=== PATIENT | male | born 1950 | race Caucasian/White ===

== ENCOUNTER 2020-05-06 06:27 | Observation (INO) ==
--- NOTE | 2020-04-21 08:28 | ANES ---
Anesthesia Pre Procedure Eval HOME MEDICATIONS aspirin 81 mg tablet,delayed release 81 mg PO .COMPLEX 03/24/20 [Last Taken Unknown] cetirizine 10 mg tablet 10 mg PO DAILY PRN tab 03/24/20 [Last Taken Unknown] cholecalciferol (vitamin D3) 50 mcg (2,000 unit) capsule 50 mcg PO DAILY 03/24/20 [Last Taken Unknown] ibuprofen 200 mg tablet 800 mg PO HS tab 03/24/20 [Last Taken Unknown] Allergies/Adverse Reactions: Allergies Allergy/AdvReac Type Severity Reaction Status Date / Time No Known Allergies Allergy Verified 04/15/20 09:13 - Planned Procedure Planned Procedure: Left Arthroplasty Total Knee Medication List Reviewed:: Yes Allergies Verified: Yes Medical History (Last Reviewed 04/21/20 @ 08:25 by Edwin Hernandez CRNA) Primary osteoarthritis of left knee (Chronic) Seasonal allergies Surgical History (Last Reviewed 04/21/20 @ 08:25 by Edwin Hernandez CRNA) H/O colonoscopy Onset Date: ~2018 [facility] H/O discectomy Onset Date: ~12/2018 L3-4: [facility] H/O hernia repair Onset Date: Unknown Family History (Last Reviewed 04/21/20 @ 08:25 by Edwin Hernandez CRNA) Father Hypertension TIA (transient ischemic attack) Leukemia Mother Lupus Lymphoma Rheumatoid arthritis - Family Anesthesia History Family History:: no untoward family reactions to anesthesia, no familial bleeding tendencies, no family history of clotting disorders, no family history of premature - Airway/Neck/Teeth Within Normal Limits:: Yes Teeth Condition: intact Neck Exam: full range of motion Mallampatti Score: 1 Thyromental (T-M) distance: > 6 cm Mandibulo Hyoid distance: > 3 cm - Respiratory Respiratory Physical: lungs clear Smoking Status: Never smoker Sleep Apnea currently treated: No Sleep Apnea by current assessment: No - Cardiovascular Tolerate Activity: Fair Heart Sounds: S1 & S2, Regular - Gastrointestinal NPO since: 2400 - Anesthesia Assessment and Plan ASA Class: PS, II Anesthesia Type Plan: Block - Adductor canal block for post op pain relief, Spinal
[~2020-05-06 06:27] MED LIST: BUPIVACAINE HCL/EPINEPHRINE 50 ML VIAL IJ ONE; MIDAZOLAM HCL/PF 5 MG/ML VIAL ONE; MORPHINE SULFATE 15 MG TABLET.SA PO PRN; ONDANSETRON HCL/PF 2 MG/ML VIAL ONE; PROPOFOL VIAL IV ONE; ROPIVACAINE/CLONIDIN/KETOROLAC 50 ML SYRINGE IJ PRN; TRANEXAMIC ACID 1,000 MG in NORMAL SALINE 100 ML IV PRN; ceFAZolin SODIUM 1 GM VIAL IV PRN
[2020-05-06] MEDS ORDERED: ceFAZolin SODIUM 1 GM VIAL ONE (06:38)
[2020-05-06] MEDS ORDERED: ISOPROPYL ALCOHOL 480 APPL BTL MC ONE (06:38)
[2020-05-06] MEDS: RINGER'S SOLUTION,LACTATED 1,000 ML IV PRN ×3 (07:00→10:03)
[2020-05-06] MEDS ORDERED: diphenhydrAMINE HCL 50 MG/ML VIAL IV PRN ×2 (07:15→09:59)
[2020-05-06] MEDS ORDERED: ONDANSETRON HCL/PF 2 MG/ML VIAL IV PRN ×2 (07:15→09:59)
[2020-05-06] MEDS ORDERED: NALOXONE HCL 0.4 MG/ML VIAL IV PRN (07:15)
[2020-05-06] MEDS ORDERED: PROCHLORPERAZINE EDISYLATE 5 MG/ML VIAL IV PRN (07:15)
[2020-05-06] MEDS ORDERED: HYDROmorphone HCL 2 MG/ML VIAL IV PRN (07:15)
[2020-05-06] MEDS ORDERED: LIDOCAINE HCL 20 ML VIAL ONE (07:25)
[2020-05-06] MEDS ORDERED: fentaNYL CITRATE/PF 50 MCG/ML AMPUL ONE (07:26)
[2020-05-06] MEDS ORDERED: ONDANSETRON HCL/PF 2 MG/ML VIAL ONE (07:26)
[2020-05-06] MEDS ORDERED: PHENYLEPHRINE HCL 10 MG/ML AMPUL ONE (07:26)
[2020-05-06] MEDS ORDERED: PROPOFOL VIAL IV ONE (07:26)
[2020-05-06] MEDS ORDERED: BUPIVACAINE HCL 50 ML VIAL IJ ONE (07:27)
[2020-05-06] MEDS ORDERED: ZOLPIDEM TARTRATE 5 MG TABLET PO PRN (09:59)
[2020-05-06] MEDS ORDERED: ACETAMINOPHEN 500 MG TABLET PO PRN (09:59)
[2020-05-06] MEDS ORDERED: MAGNESIUM HYDROXIDE 30 ML UDC PO PRN (09:59)
[2020-05-06] MEDS ORDERED: DEXTROSE 5%-LACTATED RINGERS 1,000 ML IV PRN (09:59)
[2020-05-06] MEDS ORDERED: MAG HYDROX/ALUMINUM HYD/SIMETH 30 ML UDC PO PRN (09:59)
--- NOTE | 2020-05-06 09:59 | OR ---
Operative Report - Dictated Report Narrative: Date: 05/06/2020 Preoperative diagnosis: Left knee degenerative joint disease. Postoperative diagnosis: Left knee degenerative joint disease. Procedure: Left total knee arthroplasty. Surgeon: Wally Coleman M.D. Geriatrics Physician: Edgard Arndt PA-C (provided and essential set of skilled, educated hands that assisted with transfer, positioning, prepping, draping, manipulation, retraction, placement of jigs, injection, insertion of implants, irrigation, closure wounds, and dressings all of which could not be performed by the available surgical crew) Anesthesia: Spinal with regional block and local periarticular joint injection. Complications: None Specimens: Bone. Estimated blood loss: Minimal. Tourniquet time: 90 Minutes at 300 millimeters of mercury. Retained implants: Depuy Attune size 7 left lugged cemented posterior stabilized femoral component. Size 7 fixed-bearing cemented tibial platform. 7 by 6 millimeter posterior stabilized cross-linked tibial insert. 41 millimeter medialized patella button. Indications: Mr. Noyola is a 69-year-old gentleman who has had longstanding right left knee pain and arthrosis. This patient was followed in my clinic for period of time with significant complaints of left knee pain consistent with arthritic changes. He had failed conservative measures including, but not limited to, activity modification, passage of time, medications, and other conservative measures. Patient wished to proceed with surgical treatment. The risks, benefits, and alternatives were discussed in clinic. The risks of , blood clots, bleeding, infection, nerve/tendon blood vessel/ injury, malposition of components, intraoperative fracture, postoperative limited range of motion, persistent pain, failure of components, and need for additional procedures. Patient wished to proceed consent was obtained after answering all questions. Procedure: After marking the correct extremity on the floor, the patient was taken to the operating room. A timeout was performed. IV antibiotics consisting of Ancef were administered prior to the procedure. A regional followed by spinal anesthetic was induced by anesthesia, per my request, on the operative table with all bony prominences well-padded. Fleming catheter was placed, and a bump was placed under the operative side buttock. SCDs and MARIA A hose were utilized on the nonoperative leg. A well-padded tourniquet was applied to the operative thigh. The operative leg was then pre-scrubbed with alcohol, prepped, and draped in a standard sterile fashion. After exsanguinating the extremity with an Esmarch bandage, the tourniquet was inflated. After marking out the anterior knee for standard incision centered over the patella, the skin was incised and dissected down to the joint retinaculum. The joint retinaculum was marked out as well as the horizontal axis of the patella, and a standard medial parapatellar arthrotomy was then made. The most proximal aspect of the quadriceps tendon and the patella tendon insertion were protected from release. A partial synovectomy was performed as well as a resection of the infrapatellar fat pad. The distal femoral fat pad proximal to the trochlea was also resected using cautery. The soft tissues were elevated off the medial a spect of the proximal tibia using a Herbert elevator ensuring that we did not transect the medial collateral ligament. Upon initial evaluation range of motion was approximately 0 degrees to 130 degrees of flexion. There were signs of advanced arthrosis in the medial and patellofemoral greater than lateral joint spaces. There were large marginal osteophytes which were removed with a rongeur. The knee was hyperflexed and the patella was tucked laterally. Protecting the surrounding soft tissues with Homans, an entry drill was placed down the femoral canal using Whitesides line for guidance into the entry point. The intramedullary femoral alignment elena was utilized in order to cut the distal femur in 5 degrees of valgus resecting 10 millimeters of bone. Next the distal femur was sized to a size 7. A posterior referencing guide was utilized to place the distal femoral cutting block in 3 degrees of external rotation. This was pinned into place. The rotation was confirmed both visually and based on anatomic landmarks. The 4 in 1 cutting jig of the appropriate size was utilized in order to make all bony cuts. The todd wing was used to ensure no notching. Retractors were utilized in order to protect surrounding soft tissues. This cut did not result in any excessive notching. We then cut the box centered over the distal femur. This allowed for resection of the anterior and posterior cruciate ligaments. I then turned my attention to the preparation of the tibia. Using an extra medullary tibial alignment elena, 5 millimeters of bone was resected off the medial articular surface. This was made perpendicular to the mechanical axis of the joint with the alignment elena centered over the ankle mortise. The alignment elena was checked and was noted to be parallel to the me chanical axis, centered over the medial one third of the tibial tubercle, paralleling the anterior surface of the tibia. We then turned our attention to the remaining meniscus and soft tissues. These were removed while protecting the surrounding ligaments and soft tissues. The marginal osteophytes off the anterior, posterior, medial, lateral aspects of the femur and tibia were removed. The tibia was sized out to a size 7. Next the tibia was drilled and punched in an externally rotated position. Next the trial femur and a series of tibial inserts were utilized in order to allow for full extension and maximal flexion. It was found that a 6 millimeter insert gave the best range of motion and stability at multiple flexion points as well as at full extension there was less than 2 mm of gapping both medially and laterally. There is minimal anterior translation with the knee at 90 degrees of flexion and no signs of being able to dislocate the knee. The patella was then prepared. The initial thickness was 25 millimeters. This was reamed down to 15 millimeters parallel to the anterior surface of the patella. It was sized out to a size 41 medialized patella button. This was then drilled and trialed. Without any medial restraint the patella tracked appropriately and did not sublux or dislocate. At this point, it was felt these were the appropriate sized implants, and all tr ials were removed. The standard periarticular joint injection consisting of ropivacaine, Toradol, and epinephrine were injected into the periarticular joint tissues. The bony surfaces were thoroughly irrigated with a pulsatile-suction saline irrigation device. A bone plug from the prior resected anterior chamfer cut was placed into the drill hole at the distal femur. The bony surfaces were then dried in preparation for placement of the implants. The cement was vacuum mixed per the player services representative's instructions. The cement was placed on the dry bony surfaces and posterior aspect of the implants. The implants were impacted into place, removing all extruded cement. At this point anesthesia administered tranexamic acid per protocol intravenously. The knee was placed in extension with axial loading with the trial insert while the cement cured. Once the cement cured, all remaining extruded cement was removed. The knee was placed through a range of motion with the trial insert to ensure appropriate range of motion and stability. Final range of motion was approximately 0 to 130 degrees. The knee was again thoroughly irrigated with pulsatile saline lavage. The final polyethylene insert was then impacted into place ensuring no retained soft tissues. The remaining periarticular joint injection was injected. A medium Hemovac drain was placed exiting superior laterally. The knee was then placed over a triangle and the arthrotomy was closed with interrupted #1 Vicryl after thoroughly irrigating the joint. The deep and subcutaneous tissues were closed with interrupted 0 and 3-0 Vicryl respectively. Skin was closed with a running subcutaneous 3-0 Monocryl and Prineo Dermabond dressing. 4 x 4's, Sof-Rol, and a full leg Conner wrap were applied. All sponge, needle, blade, and instrument counts were correct prior to closing the wounds. Postoperative condition: The patient was awoken and transferred to the postanesthesia care unit in stable condition. Plan is to be admitted to the inpatient medical/surgical floor postoperatively for 24 hours of IV antibiotics, physical therapy, occupational therapy, and medical comanagement. Patient will be weightbearing as tolerated with range of motion as tolerated. DVT prophylaxis will be with SCDs, MARIA A hose, and pharmacological anticoagulation. Anticipated hospital stay is approximately 1-3 days.
[2020-05-06] MEDS ORDERED: LORATADINE 10 MG TABLET PO PRN (10:01)
--- NOTE | 2020-05-06 10:34 | ANES ---
Post Anesthesia Discharge - Transfer of Care Transfer of Care handoff given to nurse: Yes - Discharge from PACU Discharge from PACU when meets criteria: Yes - Discharge to ASU Discharge to ASU-no complications/pt stable: Yes
--- NOTE | 2020-05-06 10:37 | ANES ---
Post Anesthesia Assessment - Vital Signs Vitals: Last Vital Signs Temp 36.3 C 05/06/20 10:15 Pulse 71 05/06/20 10:35 Resp 20 05/06/20 10:35 BP 149/76 05/06/20 10:35 Pulse Ox 99 05/06/20 10:35 Airway Patency: Normal - Mental Status Level Of Consciousness: Awake - Pain Level Pain Score: 0 - N/V Assessment Nausea/Vomiting Presence: None Dehydration:: No
--- NOTE | 2020-05-06 10:37 | ANES ---
Anesthesia Procedure Note Procedure Note: ANESTHESIA PROCEDURE NOTE Date of Procedure: 05/06/2020. Time of procedure: 744. Performed by: Jung Bonilla CRNA Bookstore Clerk: None. Preprocedure diagnosis: Left knee degenerative joint disease. Post procedure diagnosis: Same. Procedure: Left ultrasound guided adductor canal block for postoperative analgesia. Indications: The patient is a 69-year-old male, requesting left ultrasound- guided abductor canal nerve block for postoperative analgesia related to left total knee arthroplasty. Findings: See below. Details of the procedure: The tissue over the intended target site was cleansed with ChloraPrepand draped in a sterile fashion. 2 ml Lidocaine 1 % was infiltrated to the skin and subcutaneous tissue at the intended target site. Under sterile technique and ultrasound guidance a 20-gauge block needle was inserted through the left sartorius muscle to the saphenous nerve just anterior and medial to the superficial femoral artery and vein. 15 mL's of 0.5% bupivacaine was injected after negative aspiration for blood. Needle tip and spread of local anesthetic surrounding the saphenous nerve was observed throughout the injection with real time ultrasound visualization. The needle was then removed intact. No complications were noted. The images were retained in the Hospital medical database. EBL: Minimal. Fluids: N/A. Specimen: N/A. Post procedure condition: The patient tolerated the procedure well. No complications were noted. Thank you for this consultation. Jung Bonilla CRNA
[2020-05-06] MEDS: KETOROLAC TROMETHAMINE 15 MG/ML VIAL IV SCH ×3 (11:00→22:51)
--- NOTE | 2020-05-06 11:08 | ANES ---
Post Anesthesia Assessment - Vital Signs Vitals: Last Vital Signs Temp 36.3 C 05/06/20 10:15 Pulse 73 05/06/20 10:45 Resp 12 05/06/20 10:45 BP 133/67 05/06/20 10:45 Pulse Ox 100 05/06/20 10:45 Airway Patency: Normal - Mental Status Level Of Consciousness: Awake - Pain Level Pain Score: 5 - N/V Assessment Nausea/Vomiting Presence: None Dehydration:: No
[2020-05-06] MEDS: oxyCODONE HCL/ACETAMINOPHEN 1 TAB TABLET PO PRN ×2 (11:15→23:39)
[2020-05-06] MEDS: ceFAZolin SODIUM 1 GM in DEXTROSE 5 % IN WATER 100 ML IV SCH ×6 (11:15→22:58)
[2020-05-06] MEDS: MORPHINE SULFATE 15 MG TABLET.SA PO SCH (20:28)
[2020-05-06] MEDS ORDERED: SENNOSIDES/DOCUSATE SODIUM 1 TAB TABLET PO SCH (21:00)
[2020-05-07] MEDS: KETOROLAC TROMETHAMINE 15 MG/ML VIAL IV SCH ×2 (04:12→09:56)
[2020-05-07] MEDS: oxyCODONE HCL/ACETAMINOPHEN 1 TAB TABLET PO PRN ×2 (05:09→13:15)
[2020-05-07 06:29] LABS: Hematocrit 35.9 % (42.0-52.0); Hemoglobin 12.2 gm/dL (13.5-18.0); Mean Cell Volume 88.4 fl (78-100); Platelet Count 204 K/mm3 (150-450); Red Blood Count 4.06 M/mm3 (4.7-6.0); Red Cell Distribution Width 12.3 % (11.5-14.0); White Blood Count 6.8 K/mm3 (4.0-10.5)
[2020-05-07 06:37] LABS: Anion Gap 10.3 mmol/L (6.8-13.8); BUN/Creatinine Ratio 12.9 (9.0-21.6); Calcium * 8.4 mg/dL (7.9-10.9); Carbon Dioxide 30.9 mmol/L (24-32.6); Estimated Creat Clear 75.9; Potassium 4.2 mmol/L (3.4-4.6)
[2020-05-07] MEDS: MORPHINE SULFATE 15 MG TABLET.SA PO SCH (08:55)
[2020-05-07] MEDS ORDERED: ENOXAPARIN SODIUM 40 MG/0.4 ML SYRG SC SCH (08:59)
[2020-05-07] MEDS ORDERED: CHOLECALCIFEROL 1,000 UNIT CAPSULE PO SCH (09:00)
[2020-05-07] MEDS ORDERED: MULTIVITAMINS 1 CAP CAPSULE PO SCH (09:00)
--- NOTE | 2020-05-07 13:09 | DS ---
(1) Status post total left knee replacement Problem: Acute Date of Discharge:: 05/07/20 Hospital Course: 69-year-old male postop day one status post left total knee arthroplasty. Patient was admitted to hospital for post operative monitoring, p.o. diet, p.o. pain control, PT/OT goals, monitoring postoperative complications. Patient is an uncomplicated stay to this point. He is returned to p.o. diet without complication. He is tolerating p.o. pain medication at this time. He has met all of his physical therapy/occupational therapy goals and is ready for discharge. Exam today performed by Dr. Coleman--> dressings clean/dry/intact, sensation tact light touch, diffuse mild tenderness about left knee. Patient will be discharged with the following recommendations: -Weightbearing as tolerated, assistive ice as needed -PT/OT progress per protocol -P.o. diet as tolerated -P.o. pain medication as prescribed -DVT prophylaxis: Lovenox for 7 days followed by 325 mg aspirin daily for 6 weeks -Pernio dressing in place monitor for any drainage or erythema -Follow-up with orthopedic outpatient clinic at 3 weeks postop -Disposition: Discharge home with outpatient physical therapy and schedule follow-up Procedures Performed: see notes below List Procedures: Status post left total knee arthroplasty Results and Findings: Lab Pending Results 05/07/20 06:25: WBC 6.8, RBC 4.06 L, Hgb 12.2 L, Hct 35.9 L, MCV 88.4, MCH 30.0, MCHC 34.0, RDW 12.3, Plt Count 204, MPV 9.0 05/07/20 06:25: Sodium 140, Plasma Sodium 140, Potassium 4.2, Chloride 103, Carbon Dioxide 30.9, Anion Gap 10.3, BUN 13, Creatinine 1.01, Est GFR (Non-Af Amer) 78, BUN/Creatinine Ratio 12.9, Random Glucose 102, Calcium 8.4 Discharge Location: Home Disposition: Home self-care Condition: Stable Discharge Activity: Weight bearing - Assistive device as needed Discharge Diet: General/regular food Referrals: Sukumar Cook MD [Primary Care Provider] - Problem Oriented Discharge Instructions to Patient/Family: Total Knee Replacement, Care After, [id number] Print Language (Palestinian or Sinhala Available): Palestinian Additional Patient Instructions (free text): Physical Therapy at [facility] outpatient [facility] [place] on SundayMay 10 at 9:00am, please fax PT order and demographics to fax# [phone]. Follow up [facility] Orthopedic office appointment on May 27 at 9:00am. Prescriptions (Any new or edited meds): Enoxaparin Sodium [Lovenox] 40 mg SC Q24H #6 disp.syrin Transmission Status: Pending to [facility] #[id number] oxyCODONE HCL/ACETAMINOPHEN [Percocet 5 MG/325 MG] 2 tab PO Q4H PRN #50 tab PRN Reason: Moderate Pain (Pain Scale 4-6) Transmission Status: Received by [facility] #[id number] Sennosides/Docusate Sodium [Senokot-S] 2 tab PO HS #60 tab Transmission Status: Pending to [facility] #[id number] Complete Home Medications List: Complete Home Medication List: aspirin 81 mg tablet,delayed release 81 mg PO 3XW 03/24/20 cetirizine 10 mg tablet 10 mg PO DAILY PRN tab 03/24/20 cholecalciferol (vitamin D3) 50 mcg (2,000 unit) capsule 50 mcg PO DAILY 03/24/20 ibuprofen 200 mg tablet 800 mg PO HS PRN tab 03/24/20 Multivitamins [Multivitamin Andi] 1 cap PO DAILY 04/21/20 Enoxaparin Sodium [Lovenox] 40 mg SC Q24H #6 disp.syrin 05/07/20 Sennosides/Docusate Sodium [Senokot-S] 2 tab PO HS #60 tab 05/07/20 oxyCODONE HCL/ACETAMINOPHEN [Percocet 5 MG/325 MG] 2 tab PO Q4H PRN #50 tab 05/07/20 Amb Orders for Discharge: PT Evaluation and Treatment* Location: None Selected
[2020-05-07 15:04] VITALS: BP 124/66
== END 2020-05-07 13:57 | disposition home or self-care (01) ==
LOC: SUR 06:27 → EDSTATUS 08:00 → INTOOBSV 10:35 → MS 10:35
PROVIDERS: ADMIT Orthopaedic Surgery; ATTEND Orthopaedic Surgery